=== PATIENT | female | born 1975 | race Caucasian/White ===

== ENCOUNTER 2016-11-14 16:58 | Emergency (ER) | payer MEDICAID ==
[2016-11-14 17:13] VITALS: BP 133/79
[2016-11-14] MEDS ORDERED: NAPROXEN 250 MG TABLET PO ONE (17:52)
--- NOTE | 2016-11-14 18:30 | ER Document Report ---
ED Fall - General Chief Complaint: Back Pain Stated Complaint: FALL/BACK PAIN Mode of Arrival: Ambulatory Information source: Patient Notes: 40-year-old female presents to the emergency department complaining of left upper back/rib pain. Patient reports was in her home yesterday when she lost her footing and fell on her left side onto the edge of her bed. Reports sharp pain to left upper back/lateral thorax after fall which has persisted and is worse with movement and deep breathing. Denies shortness of breath, midline back pain, chest pain, hemoptysis, extremity weakness/numbness/tingling. Patient is also requesting a refill of her albuterol inhaler as she states uses one as needed due to reported early COPD. Denies shortness of breath at this time. TRAVEL OUTSIDE OF THE [place] IN LAST 30 DAYS: No - HPI Occurred: Yesterday Where: Indoors Context: Tripped, Fell from standing Associated symptoms: None Quality of pain: Achy Severity: Moderate Pain Level: 3 - Related data Allergies/Adverse Reactions: No Known Allergies Allergy (Unverified 04/10/12 22:52) Past Medical History - General Information source: Patient - Social History Smoking Status: Current Every Day Smoker Frequency of alcohol use: None Drug Abuse: None Lives with: Family Family History: Reviewed & Not Pertinent Renal/ Medical History: Denies: Hx Peritoneal Dialysis GI Medical History: Reports: Hx Gastroesophageal Reflux Disease Traumatic Medical History: Reports: Hx Spleen Laceration/Rupture Past Surgical History: Reports: Hx Abdominal Surgery - spleenectomy, Hx Section, Hx Orthopedic Surgery - left foot, right hand, Hx Tubal Ligation - Immunizations Hx Diphtheria, Pertussis, Tetanus Vaccination: Yes Review of Systems - Review of Systems Constitutional: No symptoms reported EENT: No symptoms reported Cardiovascular: No symptoms reported Respiratory: No symptoms reported Gastrointestinal: No symptoms reported Genitourinary: No symptoms reported Female Genitourinary: No symptoms reported Musculoskeletal: See HPI Skin: No symptoms reported Hematologic/Lymphatic: No symptoms reported Neurological/Psychological: No symptoms reported -: Yes All other systems reviewed and negative Physical Exam - Vital signs Vitals: Temp Pulse Resp BP Pulse Ox 98.4 F 93 16 133/79 H 97 11/14/16 17:11 11/14/16 17:11 11/14/16 17:11 11/14/16 17:11 11/14/16 17:11 - General General appearance: Appears well, Alert In distress: None - HEENT Head: Normocephalic, Atraumatic Eyes: Normal Pupils: PERRL - Respiratory Respiratory status: No respiratory distress. No: Labored, Tachypnea Chest status: Tender - Patient has tenderness to palpation to lateral mid thorax and left upper back just inferior to scapula at mid thoracic level. Mild localized bruising to left lateral thorax at level of ribs 5-6. No swelling, crepitus, or instability., Ecchymosis, Pain on movement, Pain with deep breathing. No: Wounds, Prolonged expirations, Splinting Breath sounds: Normal - CTAB. No: Decreased air movement Chest palpation: Tender. No: Normal, Flail segment, [place] frothy sputum, Purulent sputum, Subcutaneous emphysema, Sucking chest wound, Ecchymosis, Wounds , Other - Cardiovascular Rhythm: Regular Heart sounds: Normal auscultation Murmur: No Pulses: Normal: Radial Normal capillary refill: Yes - Abdominal Inspection: Normal Distension: No distension Bowel sounds: Normal Tenderness: Nontender Organomegaly: No organomegaly - Back Back: Normal, Nontender. No: Tender, Deformity/step-off, CVA tenderness, Vertebra tenderness, Scars, Scoliosis, Wounds - Extremities General upper extremity: Normal inspection, Nontender, Normal color, Normal ROM , Normal strength, Normal temperature. No: Edema General lower extremity: Normal inspection, Nontender, Normal color, Normal ROM , Normal strength, Normal temperature, Normal weight bearing. No: Edema - Neurological Neuro grossly intact: Yes Cognition: Normal Orientation: AAOx4 [place] Coma Scale Eye Opening: Spontaneous [place] Coma Scale Verbal: Oriented [place] Coma Scale Motor: Obeys Commands [place] Coma Scale Total: 15 Speech: Normal Motor strength normal: LUE, RUE, LLE, RLE Sensory: Normal - Skin Skin Temperature: Warm Skin Moisture: Dry Skin Color: Normal Course - Re-evaluation Re-evalutation: 11/14/16 19:07 Patient hemodynamically stable, in no distress. Rib/chest x-ray unremarkable. Will treat for likely rib contusion and have patient presentation and physical exam findings are not suggestive of other intrathoracic emergent etiology at this time. Patient appears stable for discharge and agrees with home care, follow-up, and ED return precautions. - Vital Signs Vital signs: Temp Pulse Resp BP Pulse Ox 98.4 F 93 16 133/79 H 97 11/14/16 17:11 11/14/16 17:11 11/14/16 17:11 11/14/16 17:11 11/14/16 17:11 - Diagnostic Test Radiology reviewed: Image reviewed, Reports reviewed Discharge - Discharge Clinical Impression: Contusion of rib on left side Qualifiers: Encounter type: initial encounter Qualified Code(s): S20.212A - Contusion of left front wall of thorax, initial encounter Condition: Stable Disposition: HOME, SELF-CARE Instructions: Rib Contusion ([facility]), Ice Packs ([facility]), Warm Packs ([facility]), Use of [id number]-[id number] Ibuprofen ([facility]), Ultram ([facility]) Additional Instructions: Follow-up with your primary care provider on Wednesday. Return to the emergency department for any worsening symptoms or concerns. Prescriptions: Tramadol HCl [Ultram] 50 mg PO Q8HP PRN #10 tablet PRN Reason: Albuterol Sulfate [Proair HFA Inhalation Aerosol 8.5 gm MDI] 2 puff IH Q4H PRN # 1 mdi PRN Reason: Lidocaine/Menthol [Lidopatch] 1 patch TP DAILY PRN #5 adh..patch PRN Reason: Forms: Elevated Blood Pressure [facility]: [facility] [NO LOCAL MD] - Follow up in 3-5 days
== END 2016-11-14 19:26 | disposition home or self-care (01) ==
LOC: ER 16:58
DX: S20.212A Contusion of left front wall of thorax, initial encounter (principal); M54.9 Dorsalgia, unspecified; M54.6 Pain in thoracic spine; R07.81 Pleurodynia; W19.XXXA Unspecified fall, initial encounter; F17.200 Nicotine dependence, unspecified, uncomplicated
CPT/HCPCS: 99283

== ENCOUNTER 2017-02-08 21:16 | Emergency (ER) | payer SELFPAY ==
[2017-02-08] MEDS ORDERED: ACETAMINOPHEN 325 MG TABLET PO ONE (21:30)
[2017-02-08] MEDS ORDERED: MORPHINE SULFATE 10 MG/ML INJ IV ONE (21:48)
--- NOTE | 2017-02-08 21:59 | RADIOLOGY REPORT (SQ) ---
EXAM DESCRIPTION: SHOULDER LEFT 2 OR MORE VIEWS COMPLETED DATE/TIME: 02/08/2017 9:51 pm REASON FOR STUDY: injury COMPARISON: NUMBER OF VIEWS: Three views. TECHNIQUE: Internal rotation, external rotation, and Y view images acquired of the left shoulder. LIMITATIONS: None. FINDINGS: MINERALIZATION: Normal. BONES: No acute fracture or dislocation. No worrisome bone lesions. JOINTS: Anterior inferior shoulder dislocation. VISUALIZED LUNGS AND RIBS: No pneumothorax. No rib fracture. SOFT TISSUES: No radiopaque foreign body. OTHER: No other significant finding. IMPRESSION: Anterior inferior left shoulder dislocation. No acute fracture identified. TECHNICAL DOCUMENTATION: JOB ID: [id number] [employer]- All Rights Reserved
[2017-02-08] MEDS ORDERED: PROPOFOL INJ 200 MG/20 ML VIAL IV ONE ×2 (22:08→23:01)
--- NOTE | 2017-02-08 23:06 | ER Document Report ---
ED Extremity Problem, Upper - General Chief Complaint: Shoulder Injury Stated Complaint: ARM/SHOULDER INJURY Time Seen by Provider: 02/08/17 21:48 Notes: Patient is a 41-year-old female, past medical history of multiple bilateral shoulder dislocations, presents with 3 hours of left shoulder pain and feeling like it dislocated today after she reached for an object. She denies numbness, tingling or open wounds. TRAVEL OUTSIDE OF THE [place] IN LAST 30 DAYS: No - Related Data Allergies/Adverse Reactions: No Known Allergies Allergy (Unverified 04/10/12 22:52) Past Medical History - General Information source: Patient - Social History Smoking Status: Current Every Day Smoker Family History: Reviewed & Not Pertinent Patient has suicidal ideation: No Patient has homicidal ideation: No Renal/ Medical History: Denies: Hx Peritoneal Dialysis GI Medical History: Reports: Hx Gastroesophageal Reflux Disease Traumatic Medical History: Reports: Hx Spleen Laceration/Rupture Past Surgical History: Reports: Hx Abdominal Surgery - spleenectomy, Hx Section, Hx Orthopedic Surgery - left foot, right hand, Hx Tubal Ligation - Immunizations Hx Diphtheria, Pertussis, Tetanus Vaccination: Yes Review of Systems - Review of Systems Notes: REVIEW OF SYSTEMS: CONSTITUTIONAL: -fevers, -chills EENT: -eye pain, -difficulty swallowing, -nasal congestion CARDIOVASCULAR:-chest pain, -syncope. RESPIRATORY: -cough, -SOB GASTROINTESTINAL: -abdominal pain, - nausea, -vomiting, -diarrhea GENITOURINARY: -dysuria, -hematuria MUSCULOSKELETAL: +left shoulder pain, -back pain, -neck pain SKIN: -rash or skin lesions. HEMATOLOGIC: -easy bruising or bleeding. LYMPHATIC: -swollen, enlarged glands. NEUROLOGICAL: -altered mental status or loss of consciousness, -headache, - neurologic symptoms PSYCHIATRIC: -anxiety, -depression. ALL OTHER SYSTEMS REVIEWED AND NEGATIVE. Physical Exam - Vital signs Vitals: Temp Pulse Resp BP Pulse Ox 98.2 F 85 18 134/90 H 97 02/08/17 21:26 02/08/17 21:26 02/08/17 21:26 02/08/17 21:26 02/08/17 21:26 - Notes Notes: PHYSICAL EXAMINATION: GENERAL: Moderate distress HEAD: Atraumatic, normocephalic. EYES: Pupils equal round and reactive to light, extraocular movements intact, sclera anicteric, conjunctiva are normal. ENT: nares patent, oropharynx clear without exudates. Moist mucous membranes. NECK: Normal range of motion, supple without lymphadenopathy LUNGS: Breath sounds clear to auscultation bilaterally and equal. No wheezes rales or rhonchi. HEART: Regular rate and rhythm without murmurs ABDOMEN: Soft, nontender, normoactive bowel sounds. No guarding, no rebound. No masses appreciated. EXTREMITIES: Left shoulder deformity. NV intact distally. NEUROLOGICAL: Cranial nerves grossly intact. Normal speech, normal gait. Normal sensory and motor exams. PSYCH: Normal mood, normal affect. SKIN: Warm, Dry, normal turgor, no rashes or lesions noted. Course - Vital Signs Vital signs: Temp Pulse Resp BP Pulse Ox 98.2 F 85 18 134/90 H 97 02/08/17 21:26 02/08/17 21:26 02/08/17 21:26 02/08/17 21:26 02/08/17 21:26 - Diagnostic Test Radiology reviewed: Image reviewed, Reports reviewed Radiology results interpreted by me: Left shoulder x-ray: inferior and anterior shoulder dislocation Procedures - Conscious Sedation Conscious sedation Time started: 22:50 Time completed: 23:05 Consent obtained: Yes Indication: Left shoulder dislocation Last meal: 0800 Normal healthy pt.: P1. - ASA Classification Airway Evaluation: Normal anatomy Mallampati Classification: Class 1 Used during procedure: Suction available, IV access obtained, Pulse ox on pt., playground monitor on pt. Medications administered: Diprivan Reversal agents: None I personally performed/intraservice time: Sedation, Procedure, 30 min or less Complications: No - Joint Reduction/Fracture Care Left Shoulder Time completed: 23:04 Consent obtained: Yes Conscious sedation: Yes Pre-procedure NV exam: Yes Manipulation comment: Traction Countertraction technique Post-procedure NV exam: Yes Post-reduction x-ray: Joint reduced, No fracture seen Reduction attempts: 1 Complications: No Discharge - Discharge Clinical Impression: Dislocation of left shoulder joint Qualifiers: Encounter type: initial encounter Qualified Code(s): S43.005A - Unspecified dislocation of left shoulder joint, initial encounter Condition: Stable Disposition: HOME, SELF-CARE Additional Instructions: Shoulder Dislocation You've had a shoulder dislocation. Even after the shoulder is put back in place, careful care is needed to prevent further problems. As the shoulder dislocated, injury to the joint itself occurred. This must be allowed to heal. The usual treatment is a shoulder immobilizing sling. If this is your first dislocation, it must be left in place until the doctor allows you to remove it. This is important. Ice pack the shoulder frequently. One of the most important aspects of care for a shoulder dislocation is mobility exercises and strengthening exercises. You'll start these when it's safe to start moving the shoulder joint. Be sure to keep your follow-up appointments. If you develop numbness in the arm or hand, weakness of the hand muscles, arm swelling, or arm discoloration, call the doctor or return immediately. Referrals: JOSHUA YE, [facility] [Primary Care Provider] - Follow up as needed ISMAEL BOYER DO [ACTIVE STAFF] - Follow up as needed
--- NOTE | 2017-02-08 23:23 | RADIOLOGY REPORT (SQ) ---
EXAM DESCRIPTION: SHOULDER LEFT 1 VIEW COMPLETED DATE/TIME: 02/08/2017 11:09 pm REASON FOR STUDY: post-reduction COMPARISON: 02/08/2017 NUMBER OF VIEWS: One view. TECHNIQUE: AP images acquired of the left shoulder. LIMITATIONS: None. FINDINGS: There please to be interval reduction of the anterior inferior dislocation of the left thom ulder. No fracture evident. IMPRESSION: Interval reduction of the anterior inferior dislocation of the left shoulder. No fractu re evident. TECHNICAL DOCUMENTATION: JOB ID: [id number] [employer].- All Rights Reserved
[2017-02-08 23:28] VITALS: BP 117/82
== END 2017-02-08 23:27 | disposition home or self-care (01) ==
LOC: ER 21:16
PROC: 0RSKXZZ Reposition Left Shoulder Joint, External Approach (ICD-10-PCS; principal; 2017-02-08)
DX: S43.005A Unspecified dislocation of left shoulder joint, initial encounter (principal); X58.XXXA Exposure to other specified factors, initial encounter; F17.200 Nicotine dependence, unspecified, uncomplicated
CPT/HCPCS: 99283; 99152; 96374; 73020; 73030; 23650; L3650 ×2; J2270

== ENCOUNTER 2017-05-13 10:58 | Inpatient (IN) | payer SELFPAY ==
--- NOTE | 2017-05-13 11:57 | ER Document Report ---
ED Respiratory Problem <VIPIN ALMANZA - Last Filed: 05/13/17 13:51> - General Mode of Arrival: Ambulatory Information source: Patient TRAVEL OUTSIDE OF THE [place] IN LAST 30 DAYS: No <МАРИНА QUINTEROS - Last Filed: 05/13/17 14:07> - General Chief Complaint: lt shoulder and rib pain after fall Stated Complaint: FALL/RIB PAIN Time Seen by Provider: 05/13/17 11:36 Notes: Patient is a 41-year-old female who presents to the emergency department today with complaints of left lateral chest wall pain. Patient states she fell off a porch yesterday landing on the post on her left anterior ribs. Patient has a history of splenectomy. (МАРИНА QUINTEROS) - Related Data Allergies/Adverse Reactions: No Known Allergies Allergy (Unverified 04/10/12 22:52) Past Medical History - General Information source: Patient - Social History Smoking Status: Current Every Day Smoker Cigarette use (# per day): Yes Chew tobacco use (# tins/day): No Frequency of alcohol use: None Drug Abuse: None Lives with: Family Family History: Reviewed & Not Pertinent Patient has suicidal ideation: No Patient has homicidal ideation: No GI Medical History: Reports: Hx Gastroesophageal Reflux Disease Traumatic Medical History: Reports: Hx Spleen Laceration/Rupture Past Surgical History: Reports: Hx Abdominal Surgery - spleenectomy, Hx Section, Hx Orthopedic Surgery - left foot, right hand, Hx Tubal Ligation - Immunizations Hx Diphtheria, Pertussis, Tetanus Vaccination: Yes <МАРИНА QUINTEROS - Last Filed: 05/13/17 14:07> Review of Systems - Review of Systems Constitutional: No symptoms reported EENT: No symptoms reported Cardiovascular: No symptoms reported Respiratory: See HPI, Other - chest wall pain Gastrointestinal: No symptoms reported Genitourinary: No symptoms reported Female Genitourinary: No symptoms reported Musculoskeletal: No symptoms reported Skin: No symptoms reported Hematologic/Lymphatic: No symptoms reported Neurological/Psychological: No symptoms reported -: Yes All other systems reviewed and negative <МАРИНА QUINTEROS - Last Filed: 05/13/17 14:07> Physical Exam <VIPIN ALMANZA - Last Filed: 05/13/17 13:51> <МАРИНА QUINTEROS - Last Filed: 05/13/17 14:07> - Vital signs Vitals: Pulse Resp BP Pulse Ox 97 20 104/63 100 05/13/17 11:09 05/13/17 11:09 05/13/17 11:09 05/13/17 11:09 - Notes Notes: Physical Exam: General: Alert, appears uncomfortable HEENT: Normocephalic. Atraumatic. PERRL. Extraocular movements intact. Oropharynx clear. Neck: Supple. Non-tender. Respiratory: No respiratory distress. Rhonchi bilaterally consistent with smoking history. Left anterior chest wall tenderness with palpation. Cardiovascular: Regular rate and rhythm. Abdominal: Left upper quadrant tenderness with palpation. No distension. Normal Bowel Sounds. Back: Mild left scapular pain. No deformity or step off. Extremities: Moves all four extremities. Upper extremities: Normal inspection. Normal ROM. Lower extremities: Normal inspection. No edema. Normal ROM. Neurological: Normal cognition. AAOx4. Normal speech. Psychological: Normal affect. Normal Mood. Skin: Warm. Dry. Normal color. (МАРИНА QUINTEROS) Course - Laboratory Result Diagrams: 05/13/17 12:50 05/13/17 12:50 - Consults Dr. Chance Time consulted: 13:45 Consulted provider: will come to ER <VIPIN ALMANZA - Last Filed: 05/13/17 13:51> - Laboratory Result Diagrams: 05/13/17 12:50 05/13/17 12:50 <МАРИНА QUINTEROS - Last Filed: 05/13/17 14:07> - Vital Signs Vital signs: Temp Pulse Resp BP Pulse Ox 98.0 F 98 16 104/63 97 05/13/17 11:11 05/13/17 12:06 05/13/17 12:06 05/13/17 11:11 05/13/17 12:06 - Laboratory Laboratory results interpreted by me: 05/13/17 12:50 WBC 15.4 H Seg Neutrophils % 81.2 H Absolute Neutrophils 12.5 H Discharge - Discharge Admitting Provider: Surgicalist Unit Admitted: Surgical Floor <VIPIN ALMANZA - Last Filed: 05/13/17 13:51> <МАРИНА QUINTEROS - Last Filed: 05/13/17 14:07> - Discharge Clinical Impression: Pneumothorax, left Condition: Stable Disposition: ADMITTED INPATIENT Scribe Attestation: 05/13/17 13:51 I personally performed the services described in the documentation, reviewed and edited the documentation which was dictated to the scribe in my presence, and it accurately records my words and actions. (VIPIN ALMANZA) Scribe Documentation - Scribe Written by Scribe:: Donny Reyes, 05/13/2017 1332 acting as scribe for :: Jose Ramon <МАРИНА QUINTEROS - Last Filed: 05/13/17 14:07>
[2017-05-13] MEDS ORDERED: FENTANYL CITRATE INJ/PF 100 MCG/2 ML AMPUL IV ONE ×3 (11:58→15:52)
[2017-05-13] MEDS ORDERED: ONDANSETRON HCL INJ/PF 4 MG/2 ML SDV IV ONE (11:58)
[2017-05-13] MEDS ORDERED: NORMAL SALINE 1000 ML 1,000 ML IV ONE (11:59)
[2017-05-13 13:32] LABS: ABSOLUTE LYMPHOCYTES (AUTO) 2.1 10^3/uL (0.5-4.7); ABSOLUTE MONOCYTES (AUTO) 0.8 10^3/uL (0.1-1.4); ABSOLUTE NEUT (AUTO) 12.5 10^3/uL (1.7-8.2); BASOPHILS % (AUTO) 0.2 % (0-2); HEMATOCRIT 40.8 % (36.0-47.0); HGB HCT DIFFERENCE 1.2; LYMPHOCYTES % (AUTO) 13.3 % (13-45); MEAN CORPUSCULAR HEMOGLOBIN 30.2 pg (27.0-33.4); MEAN CORPUSCULAR HGB CONC 34.2 g/dL (32.0-36.0); MEAN CORPUSCULAR VOLUME 88 fl (80-97); MONOCYTES % (AUTO) 5.3 % (3-13); RED BLOOD COUNT 4.62 10^6/uL (3.72-5.28); RED CELL DISTRIBUTION WIDTH 13.4 % (11.5-14.0); SEGMENTED NEUTROPHILS % (AUTO) 81.2 % (42-78); WHITE BLOOD COUNT 15.4 10^3/uL (4.0-10.5)
[2017-05-13 13:39] LABS: ALANINE AMINOTRANSFERASE 26 U/L (9-52); ALBUMIN 4.2 g/dL (3.5-5.0); ALKALINE PHOSPHATASE 62 U/L (38-126); ANION GAP 12 (5-19); ASPARTATE AMINO TRANSFERASE 16 U/L (14-36); BILIRUBIN,DIRECT 0.3 mg/dL (0.0-0.4); BILIRUBIN,TOTAL 0.8 mg/dL (0.2-1.3); BLOOD UREA NITROGEN 10 mg/dL (7-20); CALCIUM 9.2 mg/dL (8.4-10.2); CARBON DIOXIDE 24 mmol/L (22-30); CHLORIDE 106 mmol/L (98-107); CREATININE RESULT 0.74 mg/dL (0.52-1.25); GLUCOSE 104 mg/dL (75-110); POTASSIUM 3.9 mmol/L (3.6-5.0); SODIUM 141.6 mmol/L (137-145); TOTAL PROTEIN 6.8 g/dL (6.3-8.2)
[2017-05-13] MEDS ORDERED: LIDOCAINE 1% INJ-PF (10 MG/ML) 30 ML SDV INJ ONE (13:47)
--- NOTE | 2017-05-13 15:06 | RADIOLOGY REPORT (SQ) ---
EXAM DESCRIPTION: CHEST SINGLE VIEW COMPLETED DATE/TIME: 05/13/2017 2:54 pm REASON FOR STUDY: fell off porch onto post, L ant/inf ribs COMPARISON: 10/09/2015 EXAM PARAMETERS: NUMBER OF VIEWS: One view. TECHNIQUE: Single frontal radiographic view of the chest acquired. RADIATION DOSE: NA LIMITATIONS: None. FINDINGS: LUNGS AND PLEURA: There is a 50% pneumothorax on the left. There is no significant pleura l fluid. MEDIASTINUM AND HILAR STRUCTURES: No masses. Contour normal. HEART AND VASCULAR STRUCTURES: Heart normal in size. Normal vasculature. BONES: There is a fracture of the 4th rib posteriorly. There may be healing at this fracture site. HARDWARE: None in the chest. OTHER: No other significant finding. IMPRESSION: 50% left pneumothorax. COMMENT: Findings were discussed with the ordering physician at 1500 hours on this date. TECHNICAL DOCUMENTATION: JOB ID: [id number]
--- NOTE | 2017-05-13 16:39 | RADIOLOGY REPORT (SQ) ---
EXAM DESCRIPTION: CHEST SINGLE VIEW COMPLETED DATE/TIME: 05/13/2017 4:18 pm REASON FOR STUDY: Chest Tube Placement COMPARISON: AP chest 05/13/2017, 10/09/2015 EXAM PARAMETERS: NUMBER OF VIEWS: One view. TECHNIQUE: Single frontal radiographic view of the chest acquired. RADIATION DOSE: NA LIMITATIONS: None. FINDINGS: LUNGS AND PLEURA: Since the prior film [id number], a large 4 left chest tube has been plac ed, with the tip at the apex left hemithorax. No residual left pneumothorax. There is mild diffuse airspace disease throughout the left lung which could be 3 expansion lung paren chyma pulmonary edema. Right lung well inflated, minimal chronic scarring or atelectasis lateral costophrenic sulcus. No ri ght pleural effusion or pneumothorax. MEDIASTINUM AND HILAR STRUCTURES: No masses. Contour normal. HEART AND VASCULAR STRUCTURES: Heart normal in size. Normal vasculature. BONES: No acute findings. HARDWARE: Left chest tube OTHER: Gaseous distention of the stomach IMPRESSION: Interval placement of a left chest tube in good positioning. Re-expansion of the left l doris with left lung diffuse ground-glass opacity from re-expansion pulmonary edema. TECHNICAL DOCUMENTATION: JOB ID: [id number]
--- NOTE | 2017-05-13 17:13 | PDOC H&P ---
History of Present Illness Admission Date/PCP: 05/13/17 14:41 Patient complains of: Left chest pains History of Present Illness: EDYTA BOX is a 41 year old female who slipped on her porch last night and hit her left chest on the post. She did have some complaints of pains in the left chest but worse when she woke up this morning around 9:30 AM. She was then brought to the emergency room by EMS where chest x-ray showed about a 50% left pneumothorax. A left chest tube was then inserted in the emergency room by Dr. Chance. Chest x-ray showed reexpansion of the lung with some groundglass appearance. There is about a 50 cc of blood drainage from the chest tube with small amount of air leak during the chest x-ray post chest tube placement and. Patient little uncooperative and because of pains and unable to sit up and a chest x-ray was done prior only on a semi-erect position. Past Medical History GI Medical History: Reports: Gastroesophageal Reflux Disease Past Surgical History Past Surgical History: Reports: Section, Orthopedic Surgery - left foot , right hand, Tubal Ligation Social History Lives with: Family Smoking Status: Current Every Day Smoker Frequency of Alcohol Use: Rare Hx Recreational Drug Use: No Hx Prescription Drug Abuse: No - Advance Directive Resuscitation Status: Full Code Family History Family History: Reviewed & Not Pertinent Parental Family History Reviewed: Yes Children Family History Reviewed: No Sibling(s) Family History Reviewed.: No Medication/Allergy Home Medications: No Home Medications 05/13/17 Allergies/Adverse Reactions: No Known Allergies Allergy (Unverified 04/10/12 22:52) Review of Systems Constitutional: PRESENT: other - Denies chills or fever Eyes: PRESENT: other Ears: PRESENT: other - No visible disturbance denies hearing change Cardiovascular: PRESENT: chest pain, other - Due to trauma last night Respiratory: PRESENT: as per HPI Gastrointestinal: PRESENT: other - No nausea or vomiting diarrhea or constipation Genitourinary: PRESENT: other - No dysuria Musculoskeletal: PRESENT: other - Left chest pains very tender left anterior rib cage Neurological: PRESENT: other - No dizziness nor seizure disorder Psychiatric: PRESENT: other - Patient is anxious and somewhat agitated Endocrine: PRESENT: other - Polyuria nor polydipsia Hematologic/Lymphatic: PRESENT: other - No easy bruisability or lymphadenopathy Physical Exam Vital Signs: Temp Pulse Resp BP Pulse Ox 98.0 F 98 19 114/84 98 05/13/17 11:11 05/13/17 12:06 05/13/17 16:02 05/13/17 16:02 05/13/17 16:02 General appearance: PRESENT: well-developed, well-nourished, other - In moderate distress because of severe left chest pains Head exam: PRESENT: atraumatic, normocephalic Eye exam: PRESENT: conjunctiva pink Ear exam: PRESENT: normal external ear exam Mouth exam: PRESENT: moist, tongue midline Throat exam: PRESENT: other - Postpharyngeal erythema Neck exam: PRESENT: other - Trachea midline Respiratory exam: PRESENT: other - Decreased breath sounds on the left chest and has tenderness on the left anterior and lateral chest wall Cardiovascular exam: PRESENT: RRR - Regular rate and rhythm Pulses: PRESENT: normal carotid pulses Vascular exam: PRESENT: normal capillary refill GI/Abdominal exam: PRESENT: soft, other - Nontender Rectal exam: PRESENT: deferred Extremities exam: PRESENT: other - Complains of pains along both shoulders and able to move them easily. She had she claims she had a dislocation of both shoulders in the past and needed to be reduced in the emergency room Musculoskeletal exam: PRESENT: other - Decreased range of motions of both arms her upper arms because of shoulder discomfort primarily on the left side Neurological exam: PRESENT: alert, oriented to person, oriented to place, oriented to time, oriented to situation Psychiatric exam: PRESENT: agitated, anxious Skin exam: PRESENT: dry, normal color, warm Results Impressions: Chest X-Ray 05/13/17 11:59 IMPRESSION: 50% left pneumothorax. Assessment & Plan - Time Time Spent: 30 to 50 Minutes - Inpatient Certification Medical Necessity: Need For Continuous Telemetry Monitoring, Need for Pain Control, Risk of Complication if Not Cared For in Hospital - Plan Summary Plan Summary: A left chest tube placed at the left fifth intercostal space was done in the emergency room under local anesthesia and sedation. Chest x-ray showed good position of the chest tube with possibly hemothorax. Chest tube has drained about 50 cc of blood. X-ray was then semi-erect because patient unable to sit up erect because of the pains Chest tube to suction. Serial chest x-ray to monitor the pneumothorax Order incentive spirometry and nasal oxygen Pain management with parenteral pain medications
[2017-05-13] MEDS ORDERED: HYDROMORPHONE HCL INJ/PF 2 MG/ML AMPULE IV PRN ×2 (17:29→20:12)
--- NOTE | 2017-05-13 17:43 | OPERATIVE REPORT E ---
Operative Report NAME: EDYTA BOX : 1975 AGE: 41Y DATE OF SURGERY: 05/13/2017 ROOM: 415 PREOPERATIVE DIAGNOSIS: Pneumothorax from the left side, traumatic. POSTOPERATIVE DIAGNOSIS: Pneumothorax from the left side, traumatic. OPERATION: Insertion of left chest tube at 5th intercostal space. SURGEON: KIRILL JOVEL M.D. ANESTHESIA: Local with sedation. INDICATION: This is a 41-year-old female who slipped on her porch and fell on the floor, hitting a pole on her left chest. She complained of pain on the left, but felt she was able to sleep well last night. She woke up this morning around 9:30 a.m. complaining of severe pains and called EMS to bring her to the emergency room. Chest x-ray in the ER revealed at least a 30% to 40% pneumothorax on the left chest. The patient was given 1 mg of IV Dilaudid on top of the fentanyl she just had. DESCRIPTION OF PROCEDURE: The left chest was then prepped and draped in the usual sterile fashion. Local anesthesia was infiltrated at the area of the fifth intercostal space. A 1/2 inch incision was made just above the fifth rib. At this point, the patient was still complaining of discomfort and the patient then given the rest of 1 mg of Dilaudid for a total of 2 mg. Also the operative site was anesthetized further with 1% lidocaine down to the pleura. Blunt dissection of the intercostal space was done with hemostat and the pleural cavity entered with a little gush of air. Finger was placed to prevent entry of air into the chest cavity, and a 28-[place] chest tube was then inserted up to about 16 cm. The chest tube was then anchored to the skin with O silk. The chest tube was then clamped and connected to a Pleur-Evac and there was obvious air leak noted in the Pleur-Evac. Vaseline gauze was then sterile 4 x 4 placed on top of it and adhesive tape placed over it. The connector was then reinforced with adhesive tape. A chest x-ray will be obtained. The patient tolerated the procedure well. DICTATING PHYSICIAN: KIRILL JOVEL M.D. [id number] PHY#: [id number] ID: [id number] JOB#: [id number] ACCT: [id number] cc:KIRILL JOVEL M.D. >
--- NOTE | 2017-05-13 17:50 | PDOC H&P ---
History of Present Illness Admission Date/PCP: 05/13/17 14:41 Patient complains of: Left chest pains and difficulty breathing History of Present Illness: This is a 41-year-old female who fell of his reports last night and landed on the post injuring her left chest. She did complain some pains last night but worse when she woke up this morning at 9:30 AM. She called 911 and subsequently brought to the ER where a chest x-ray was done which showed a needs a 50% left pneumothorax. Dr. Wing placed in left chest tube the fifth intercostal space midclavicular line under local anesthesia and sedation. Chest x-ray post tube placement revealed normal practically completely expanded with some haziness may be due to hemothorax. The chest tube is drained 50 cc of blood and still has somewhat a little air leak. Patient unable to cough because of the pains and unable to move because of the pains. We will give her parenteral pain medications so she can better breathe well to prevent pneumonia Past Medical History GI Medical History: Reports: Gastroesophageal Reflux Disease Past Surgical History Past Surgical History: Reports: Section, Orthopedic Surgery - left foot , right hand, Tubal Ligation Social History Lives with: Family Smoking Status: Current Every Day Smoker Frequency of Alcohol Use: Rare Hx Recreational Drug Use: No Hx Prescription Drug Abuse: No - Advance Directive Resuscitation Status: Full Code Family History Family History: Reviewed & Not Pertinent Parental Family History Reviewed: Yes Children Family History Reviewed: No Sibling(s) Family History Reviewed.: No Medication/Allergy Home Medications: No Home Medications 05/13/17 Allergies/Adverse Reactions: No Known Allergies Allergy (Unverified 04/10/12 22:52) Review of Systems Constitutional: ABSENT: chills, fever(s), headache(s), weight gain, weight loss Eyes: ABSENT: visual disturbances Ears: ABSENT: hearing changes Cardiovascular: ABSENT: chest pain, dyspnea on exertion, edema, orthropnea, palpitations Respiratory: ABSENT: cough, hemoptysis Gastrointestinal: ABSENT: abdominal pain, constipation, diarrhea, hematemesis, hematochezia, nausea, vomiting Genitourinary: ABSENT: dysuria, hematuria Musculoskeletal: ABSENT: joint swelling Integumentary: ABSENT: rash, wounds Neurological: ABSENT: abnormal gait, abnormal speech, confusion, dizziness, focal weakness, syncope Psychiatric: ABSENT: anxiety, depression, homidical ideation, suicidal ideation Endocrine: ABSENT: cold intolerance, heat intolerance, polydipsia, polyuria Hematologic/Lymphatic: ABSENT: easy bleeding, easy bruising Physical Exam Vital Signs: Temp Pulse Resp BP Pulse Ox 98.0 F 97 18 109/69 97 05/13/17 17:00 05/13/17 17:00 05/13/17 17:00 05/13/17 17:00 05/13/17 17:00 General appearance: PRESENT: no acute distress, well-developed, well-nourished Exam: As tenderness along the left anterolateral chest wall. Incidentally patient has a fracture of the left fourth rib radiologist not clear about saying whether it is old or new. Head exam: PRESENT: atraumatic, normocephalic Eye exam: PRESENT: conjunctiva pink, EOMI, PERRLA. ABSENT: scleral icterus Ear exam: PRESENT: normal external ear exam Mouth exam: PRESENT: moist, tongue midline Neck exam: ABSENT: carotid bruit, JVD, lymphadenopathy, thyromegaly Respiratory exam: PRESENT: clear to auscultation brayan. ABSENT: rales, rhonchi, wheezes Cardiovascular exam: PRESENT: RRR. ABSENT: diastolic murmur, rubs, systolic murmur Pulses: PRESENT: normal dorsalis pedis pul Vascular exam: PRESENT: normal capillary refill GI/Abdominal exam: PRESENT: normal bowel sounds, soft. ABSENT: distended, guarding, mass, organolmegaly, rebound, tenderness Rectal exam: PRESENT: deferred Extremities exam: PRESENT: full ROM. ABSENT: calf tenderness, clubbing, pedal edema Neurological exam: PRESENT: alert, awake, oriented to person, oriented to place , oriented to time, oriented to situation, CN II-XII grossly intact. ABSENT: motor sensory deficit Psychiatric exam: PRESENT: appropriate affect, normal mood. ABSENT: homicidal ideation, suicidal ideation Skin exam: PRESENT: dry, intact, warm. ABSENT: cyanosis, rash Results Impressions: Chest X-Ray 05/13/17 11:59 IMPRESSION: 50% left pneumothorax. Assessment & Plan - Time Time Spent: 30 to 50 Minutes - Inpatient Certification Medical Necessity: Need Close Monitoring Due to Risk of Patient Decompensation, Need For Continuous Telemetry Monitoring, Need for Pain Control, Risk of Complication if Not Cared For in Hospital, Risk of Diagnosis Which Will Require Inpatient Eval/Care/Monitoring
[2017-05-13] MEDS: HYDROMORPHONE HCL INJ/PF 2 MG/ML AMPULE IV PRN ×2 (20:42→23:53)
[2017-05-13] MEDS ORDERED: NICOTINE 21 MG/24 HR PATCH.TD24 TD ONE (21:30)
[2017-05-14] MEDS: OXYCODONE-ACETAMINOPHEN 5-325 MG TABLET PO PRN ×3 (01:13→21:38)
[2017-05-14] MEDS: HYDROMORPHONE HCL INJ/PF 2 MG/ML AMPULE IV PRN ×2 (02:58→08:22)
[2017-05-14] MEDS: NICOTINE 21 MG/24 HR PATCH.TD24 TD SCH (08:21)
--- NOTE | 2017-05-14 10:51 | RADIOLOGY REPORT (SQ) ---
EXAM DESCRIPTION: CHEST SINGLE VIEW COMPLETED DATE/TIME: 05/14/2017 10:38 am REASON FOR STUDY: CHECK FOR PLACEMENT COMPARISON: 05/13/2017 EXAM PARAMETERS: NUMBER OF VIEWS: One view. TECHNIQUE: Single frontal radiographic view of the chest acquired. RADIATION DOSE: NA LIMITATIONS: None. FINDINGS: LUNGS AND PLEURA: The left lung is re-expanded. There is faintly defined increased opacit y in the left lung, possibly secondary to re-expansion. MEDIASTINUM AND HILAR STRUCTURES: No masses. Contour normal. HEART AND VASCULAR STRUCTURES: Heart normal in size. Normal vasculature. BONES: No acute findings. HARDWARE: Thoracotomy tube remains in place on the left. OTHER: No other significant finding. IMPRESSION: There may be mild edema in the left lung secondary to re-expansion. The thoracotomy tub e remains in position. TECHNICAL DOCUMENTATION: JOB ID: [id number]
[2017-05-14] MEDS ORDERED: ONDANSETRON HCL 8 MG TABLET PO PRN (12:36)
[2017-05-14] MEDS ORDERED: ONDANSETRON HCL INJ/PF 4 MG/2 ML SDV ONE (12:36)
[2017-05-14] MEDS ORDERED: HYDROMORPHONE HCL INJ/PF 2 MG/ML AMPULE IV PRN (16:27)
--- NOTE | 2017-05-14 16:27 | PDOC PROGRESS REPORT ---
Subjective Progress Note for:: 05/14/17 Subjective:: Severe pains along the left chest Physical Exam Vital Signs: Temp Pulse Resp BP Pulse Ox 98.5 F 91 16 101/54 L 96 05/14/17 16:07 05/14/17 16:07 05/14/17 16:07 05/14/17 16:07 05/14/17 16:07 Intake & Output 05/13/17 05/14/17 05/15/17 06:59 06:59 06:59 Intake Total 630 Output Total 880 Balance -250 Exam: Positive tenderness along the left anterior lateral chest. She does have a fracture of the left fourth rib. Chest tube drainage since about 250 cc of primarily serous sanguinous at this time. No definite air leak noted Results Impressions: Chest X-Ray 05/14/17 08:00 IMPRESSION: There may be mild edema in the left lung secondary to re- expansion. The thoracotomy tube remains in position. Assessment & Plan - Time Time Spent with patient: 15-24 minutes - Inpatient Certification Medical Necessity: Need Close Monitoring Due to Risk of Patient Decompensation, Need For Continuous Telemetry Monitoring, Need for Pain Control, Risk of Complication if Not Cared For in Hospital, Risk of Diagnosis Which Will Require Inpatient Eval/Care/Monitoring - Plan Summary Plan Summary: #1 continue with chest tube 2. We will add Toradol since her blood pressure in the low side and higher dose of narcotic may may give her more hypotension. 3. Schwartz catheter was inserted since she is not able to void on her own and she did have about 800 cc of urine prior to placement of Schwartz catheter. 4. We will ask physical therapy to get her out of bed. She claims she had history of dislocation of both shoulders and each time there were and they were put back in the emergency room. Because of this she is afraid of her shoulders being dislocated and also has a lot of pains along the left chest area where she has a fracture of the fourth rib
[2017-05-14] MEDS: KETOROLAC TROMETHAMINE INJ/PF 30 MG/1 ML SDV IV SCH (18:04)
[2017-05-14] MEDS: ONDANSETRON HCL INJ/PF 4 MG/2 ML SDV IV PRN (18:05)
[2017-05-14] MEDS: NORMAL SALINE 1000 ML 1,000 ML IV PRN (18:06)
[2017-05-15] MEDS: KETOROLAC TROMETHAMINE INJ/PF 30 MG/1 ML SDV IV SCH ×3 (02:06→17:25)
[2017-05-15] MEDS: OXYCODONE-ACETAMINOPHEN 5-325 MG TABLET PO PRN ×2 (04:22→15:32)
[2017-05-15] MEDS: NICOTINE 21 MG/24 HR PATCH.TD24 TD SCH (10:40)
[2017-05-15] MEDS: DOCUSATE SODIUM 100 MG CAPSULE PO SCH ×2 (10:41→17:35)
[2017-05-15] MEDS: ONDANSETRON HCL INJ/PF 4 MG/2 ML SDV IV PRN ×2 (10:47→23:46)
[2017-05-15] MEDS: NORMAL SALINE 1000 ML 1,000 ML IV PRN (18:25)
[2017-05-15] MEDS: HYDROMORPHONE HCL INJ/PF 2 MG/ML AMPULE IV PRN ×2 (18:50→23:46)
--- NOTE | 2017-05-15 20:21 | RADIOLOGY REPORT (SQ) ---
EXAM DESCRIPTION: CHEST PA/LAT COMPLETED DATE/TIME: 05/15/2017 4:55 pm REASON FOR STUDY: pnuemothorax COMPARISON: 05/13/2017 EXAM PARAMETERS: NUMBER OF VIEWS: two views TECHNIQUE: Digital Frontal and Lateral radiographic views of the chest acquired. RADIATION DOSE: NA LIMITATIONS: none FINDINGS: LUNGS AND PLEURA: Markedly improved radiographic appearance of the chest. No residuals le ft sided pneumothorax is demonstrated. Bibasilar atelectasis versus scarring. No focal consolidatio n. Right-sided pleural effusion is present. MEDIASTINUM AND HILAR STRUCTURES: Interval reduction of previously demonstrated mediastinal shift. N o masses. HEART AND VASCULAR STRUCTURES: Heart normal size. No evidence for failure. BONES: No acute findings. HARDWARE: Left alexis thorax chest tube with the tip positioned in the region of the left apex. OTHER: No other significant finding. IMPRESSION: 1. Left hemithorax chest tube without evidence of complication. 2. Interval radiographic resolution of a previously demonstrated left-sided pneumothorax with medias tinal shift. TECHNICAL DOCUMENTATION: JOB ID: [id number] [employer]- All Rights Reserved
[2017-05-16] MEDS: KETOROLAC TROMETHAMINE INJ/PF 30 MG/1 ML SDV IV SCH ×2 (02:42→10:41)
[2017-05-16] MEDS ORDERED: LANSOPRAZOLE 30 MG TAB.RAP.DR PO PRN (03:51)
[2017-05-16] MEDS: HYDROMORPHONE HCL INJ/PF 2 MG/ML AMPULE IV PRN ×2 (06:40→12:48)
[2017-05-16] MEDS: NORMAL SALINE 1000 ML 1,000 ML IV PRN (06:40)
[2017-05-16] MEDS: ONDANSETRON HCL INJ/PF 4 MG/2 ML SDV IV PRN (06:40)
[2017-05-16] MEDS: NICOTINE 21 MG/24 HR PATCH.TD24 TD SCH (09:00)
[2017-05-16] MEDS: OXYCODONE-ACETAMINOPHEN 5-325 MG TABLET PO PRN ×2 (09:01→16:16)
[2017-05-16] MEDS: DOCUSATE SODIUM 100 MG CAPSULE PO SCH (09:01)
--- NOTE | 2017-05-16 15:28 | DISCHARGE SUMMARY E ---
Discharge Summary NAME: EDYTA BOX : 1975 AGE: 41Y ADMITTED: 05/13/2017 DISCHARGED: 05/16/2017 ADMITTING DIAGNOSIS: Left side rib fracture with pneumothorax, traumatic, with fall. DISCHARGE DIAGNOSIS: Left side rib fracture with pneumothorax, traumatic, with fall. HOSPITAL COURSE: The patient was admitted for pain management, also she had a pneumothorax, for which she had a chest tube placement. Chest tube basically had to expand the lung, but we had some pleural fluid still draining until this morning, so today, the patient was feeling much better, afebrile, lung expanded completely, drain was minimal. We removed the chest tube. She is being discharged home with the pain medication, [place], for the pain, stool softener, and I strongly advised her to stop smoking completely, gave her a nicotine patch. Follow up in 1 week in surgery office. DICTATING PHYSICIAN: NILAM VELARDE M.D. [id number] PHY#: [id number] ID: [id number] JOB#: [id number] ACCT: [id number] cc:Ryann YU M.D. > MTDD
--- NOTE | 2017-05-16 15:43 | RADIOLOGY REPORT (SQ) ---
EXAM DESCRIPTION: CHEST SINGLE VIEW COMPLETED DATE/TIME: 05/16/2017 3:26 pm REASON FOR STUDY: removed chest tube COMPARISON: Chest films 05/13/2017, 05/14/2017, 05/15/2017 EXAM PARAMETERS: NUMBER OF VIEWS: One view. TECHNIQUE: Single frontal radiographic view of the chest acquired. RADIATION DOSE: NA LIMITATIONS: None. FINDINGS: LUNGS AND PLEURA: The left chest tube has been removed. Trace left apical pneumothorax. Persistent basilar atelectasis in the left medial lung base and lateral right lung base. No pleural effusions. No right pneumothorax. MEDIASTINUM AND HILAR STRUCTURES: No masses. Contour normal. HEART AND VASCULAR STRUCTURES: Heart normal in size. Normal vasculature. BONES: Left posterior 4th rib fracture HARDWARE: None in the chest. OTHER: No other significant finding. IMPRESSION: Post removal of a left chest tube. Trace left apical pneumothorax. Bibasilar atelectasis. TECHNICAL DOCUMENTATION: JOB ID: [id number]
[2017-05-16 16:10] VITALS: BP 90/47
== END 2017-05-16 16:30 | disposition home or self-care (01) | DRG 201 ==
LOC: ER 10:58 → EH 14:41 → 4N 16:15
PROVIDERS: ATTEND Surgery
PROC: 0W9B30Z Drainage of Left Pleural Cavity with Drainage Device, Percutaneous Approach (ICD-10-PCS; principal; 2017-05-13)
DX: S27.0XXA Traumatic pneumothorax, initial encounter (principal); W17.89XA Other fall from one level to another, initial encounter; W22.8XXA Striking against or struck by other objects, initial encounter; F17.210 Nicotine dependence, cigarettes, uncomplicated; K21.9 Gastro-esophageal reflux disease without esophagitis; Y92.008 Other place in unspecified non-institutional (private) residence as the place of occurrence of the external cause; Z98.51 Tubal ligation status
CPT/HCPCS: 36415; 71010; 71020; 80053; 85025; 94799; 99285; J1170; J1885; J2405; J3010; J3490; J7030; L3908

== ENCOUNTER 2017-10-29 14:45 | Emergency (ER) | payer SELFPAY ==
--- NOTE | 2017-10-29 15:17 | RADIOLOGY REPORT (SQ) ---
EXAM DESCRIPTION: SHOULDER LEFT 2 OR MORE VIEWS COMPLETED DATE/TIME: 10/29/2017 3:07 pm REASON FOR STUDY: positive deformity COMPARISON: Earlier the same day. NUMBER OF VIEWS: Two views. TECHNIQUE: Frontal and lateral images acquired of the left shoulder. LIMITATIONS: None. FINDINGS: Anterior glenohumeral dislocation. IMPRESSION: Anterior glenohumeral dislocation. TECHNICAL DOCUMENTATION: JOB ID: [id number] [employer]- All Rights Reserved Reading location - IP/workstation name: [email or web address]
[2017-10-29] MEDS ORDERED: PROPOFOL INJ 200 MG/20 ML VIAL IV ONE (15:26)
--- NOTE | 2017-10-29 16:27 | ER Document Report ---
ED Extremity Problem, Upper - General Chief Complaint: Shoulder Injury Stated Complaint: SHOULDER INJURY Time Seen by Provider: 10/29/17 15:16 Notes: Patient has dislocated her left shoulder raising her arm above her head this afternoon. She has had this happen to her many times before, "perhaps 100s of times" on the left shoulder and a few times on the right shoulder. Denies any other injuries or complaints. Patient is tearful and appears to have an anterior location of the humeral head and the glenoid fossa. Has normal movement of her fingers in the left hand. No neural loss. TRAVEL OUTSIDE OF THE [place] IN LAST 30 DAYS: No - Related Data Allergies/Adverse Reactions: No Known Allergies Allergy (Verified 10/29/17 14:46) Past Medical History - Social History Smoking Status: Unknown if Ever Smoked Family History: Reviewed & Not Pertinent Patient has suicidal ideation: No Patient has homicidal ideation: No GI Medical History: Reports: Hx Gastroesophageal Reflux Disease Traumatic Medical History: Reports: Hx Spleen Laceration/Rupture Past Surgical History: Reports: Hx Abdominal Surgery - spleenectomy, Hx Section, Hx Orthopedic Surgery - left foot, right hand, Hx Tubal Ligation - Immunizations Hx Diphtheria, Pertussis, Tetanus Vaccination: Yes Review of Systems - Review of Systems Notes: REVIEW OF SYSTEMS: Difficult to obtain because patient is hollering and screaming loudly about her shoulder pain and not answering most of my questions. CONSTITUTIONAL : Denies fever. EENT: Denies eye, ear, nose or mouth or throat pain or other symptoms. CARDIOVASCULAR: Denies chest pain. RESPIRATORY: Denies cough, chest congestion, or shortness of breath. GASTROINTESTINAL: Denies abdominal pain or nausea, vomiting, or diarrhea. GENITOURINARY: Denies difficulty or painful urinating, urinary frequency, blood in urine. MUSCULOSKELETAL: Denies back or neck pain. See HPI. SKIN: Denies rash or skin lesions. NEUROLOGICAL: Denies LOC or altered mental status. Denies headache. Denies sensory loss or motor deficits. ALL OTHER SYSTEMS REVIEWED AND NEGATIVE. Physical Exam - Vital signs Vitals: Temp Pulse Resp BP Pulse Ox 98.3 F 84 18 115/70 95 10/29/17 14:54 10/29/17 14:54 10/29/17 14:54 10/29/17 14:54 10/29/17 14:54 Interpretation: Normal - Notes Notes: PHYSICAL EXAMINATION: GENERAL: Patient is holding her left shoulder very still with her right hand. Patient is very thin individual limits apparent from looking at her shoulder that she has an anterior dislocation of the humeral head. Very tender to touch or move at all. HEAD: Atraumatic, normocephalic. EYES: Pupils equal round and reactive to light, extraocular movements intact. ENT: oropharynx clear without exudates. Moist mucous membranes. NECK: Normal range of motion, supple. LUNGS: Breath sounds clear and equal bilaterally. HEART: Regular rate and rhythm without murmurs. ABDOMEN: Soft, nontender. No guarding or rebound. No masses. BACK: No tenderness throughout entire back. EXTREMITIES: Apparent anterior dislocation of the left humerus. Good neuro function in the left hand. Good circulation in the nailbeds of the left fingers. NEUROLOGICAL: Yelling loudly. Normal gait while holding her arm still with the opposite arm.. Normal sensory, motor, and reflex exams. Awake, alert, and oriented x3. PSYCH: Normal mood, normal affect. SKIN: Warm, dry, no rashes. Course - Vital Signs Vital signs: Temp Pulse Resp BP Pulse Ox 98.3 F 84 18 98/70 L 94 10/29/17 14:54 10/29/17 14:54 10/29/17 16:21 10/29/17 16:21 10/29/17 16:21 Procedures - Joint Reduction/Fracture Care Left Shoulder Consent obtained: Yes Conscious sedation: Yes Pre-procedure NV exam: Yes Manipulation comment: External rotation of humerus and then extension at the shoulder joint Post-procedure NV exam: Yes Post-reduction x-ray: Joint reduced Reduction attempts: 1 Complications: No Notes: 10/29/17 19:03 Easy reduction with external rotation of the humerus and extension of the left shoulder joint. Neurovascular intact in the left upper extremity after the reduction procedure. Discharge - Discharge Clinical Impression: Anterior dislocation of left shoulder Condition: Stable Disposition: HOME, SELF-CARE Additional Instructions: Shoulder Dislocation You've had a shoulder dislocation. Even after the shoulder is put back in place, careful care is needed to prevent further problems. As the shoulder dislocated, injury to the joint itself occurred. This must be allowed to heal. The usual treatment is a shoulder immobilizing sling. If this is your first dislocation, it must be left in place until the doctor allows you to remove it. This is important. Ice pack the shoulder frequently. One of the most important aspects of care for a shoulder dislocation is mobility exercises and strengthening exercises. You'll start these when it's safe to start moving the shoulder joint. Be sure to keep your follow-up appointments. If you develop numbness in the arm or hand, weakness of the hand muscles, arm swelling, or arm discoloration, call the doctor or return immediately. Sling as Treatment A sling has been applied to protect the injury. This is adequate immobilization for this type of injury -- no cast or brace is required. Keep the sling on at all times until instructed to remove it by the doctor. Even though no cast or splint is needed, you must use the sling. If you use the arm too soon, it may not heal properly! If necessary, the sling can be adjusted for comfort. Return if you are encountering problems with the sling. We recommend you follow-up with an orthopedic surgeon for evaluation for possible surgery on her shoulder to keep it from coming out of place. Ibuprofen Ibuprofen is an excellent, safe drug for pain control. In addition, it has potent antiinflammatory effects which are beneficial, especially in the treatment of injuries, arthritis, or tendonitis. It's best to take ibuprofen with food. Persons with ulcer disease or allergy to aspirin should notify their physician of this before taking ibuprofen. Take the medication exactly as prescribed. Don't take additional doses unless instructed to do so by your doctor. If you develop wheezing, shortness of breath, hives, faintness, stomach pain, vomiting, or dark black stools, return for re-evaluation at once. USE OF ACETAMINOPHEN (Tylenol): Acetaminophen may be taken for pain relief or fever control. It's much safer than aspirin, offering a wider range of "safe" dosages. It is safe during . Some brand names are Tylenol, Panadol, Datril, Anacin 3, Tempra, and Liquiprin. Acetaminophen can be repeated every four hours. The following are maximum recommended dosages: WEIGHT Dose Drops Elixir Chewable( 80mg) (LBS.) drprs=droppers tsp=teaspoon 24-30 240 mg 3 >89 pounds or adults 650 mg to 900 mg Acetaminophen can be repeated every four hours. Maximum dose not to exceed 4000 mg a day. These maximum recommended dosages are slightly higher than the dosages written on the product container, but these dosages are very safe and below the toxic dosage for acetaminophen. FOLLOW-UP CARE: If you have been referred to a physician for follow-up care, call the physician s office for an appointment as you were instructed or within the next two days. If you experience worsening or a significant change in your symptoms, notify the physician immediately or return to the Emergency Department at any time for re-evaluation.
--- NOTE | 2017-10-29 16:30 | RADIOLOGY REPORT (SQ) ---
EXAM DESCRIPTION: SHOULDER LEFT 1 VIEW COMPLETED DATE/TIME: 10/29/2017 4:19 pm REASON FOR STUDY: Post reduction x-ray. COMPARISON: Earlier same day. NUMBER OF VIEWS: One view. TECHNIQUE: Frontal images acquired of the left shoulder. LIMITATIONS: None. FINDINGS: Dislocation has been reduced. IMPRESSION: Successful closed reduction. TECHNICAL DOCUMENTATION: JOB ID: [id number] [employer]- All Rights Reserved Reading location - IP/workstation name: [email or web address]
[2017-10-29 16:40] VITALS: BP 98/70
== END 2017-10-29 16:31 | disposition home or self-care (01) ==
LOC: ER 14:45
PROC: 0RSKXZZ Reposition Left Shoulder Joint, External Approach (ICD-10-PCS; principal; 2017-10-29)
DX: M24.412 Recurrent dislocation, left shoulder (principal)
CPT/HCPCS: 99283; 99153; 99152; 73020; 73030; 23650; L3650; J2704

== ENCOUNTER 2018-09-29 12:56 | Emergency (ER) | payer SELFPAY ==
[2018-09-29] MEDS ORDERED: ACETAMINOPHEN 325 MG TABLET PO ONE (13:26)
--- NOTE | 2018-09-29 13:28 | ER Document Report ---
HPI - HPI Time Seen by Provider: 09/29/18 13:21 Pain Level: 2 Notes: Patient is a 42-year-old female with chronic ankle issues on the right side currently being seen by [facility] who presents to the emergency department complaining of acute on chronic right ankle pain and neck pain status post fall prior to arrival. Patient states that she lost her footing and reinjured her right ankle and believes that she may have injured her neck in the process that she has pain along the spine of her neck. She did not hit her head or lose consciousness. Denies drug allergies. No other concerns or complaints. Denies IV drug abuse. No history of spinal abscess. Denies any headache, fever, head injury, changes in vision/speech/mentation/hearing, URI, sore throat, chest pain, palpitations, syncope, cough, shortness of breath, wheeze, dyspnea, abdominal pain, nausea/vomiting/diarrhea, urinary retention, dysuria, hematuria, loss of control of bowel or bladder, numbness/tingling, saddle anesthesia, muscle paralysis, or rash. - ROS Systems Reviewed and Negative: Yes All other systems reviewed and negative - REPRODUCTIVE Reproductive: DENIES: : Past Medical History - Social History Smoking Status: Current Every Day Smoker Family History: Reviewed & Not Pertinent Renal/ Medical History: Denies: Hx Peritoneal Dialysis GI Medical History: Reports: Hx Gastroesophageal Reflux Disease Traumatic Medical History: Reports: Hx Spleen Laceration/Rupture Past Surgical History: Reports: Hx Abdominal Surgery - spleenectomy, Hx Section, Hx Orthopedic Surgery - left foot, right hand, Hx Tubal Ligation - Immunizations Hx Diphtheria, Pertussis, Tetanus Vaccination: Yes Vertical Provider Document - CONSTITUTIONAL Agree With Documented VS: Yes Notes: PHYSICAL EXAMINATION: GENERAL: Well-appearing, well-nourished and in no acute distress. Neck: FROM. Strength 5+/5. + tenderness to the midline and left c-paraspinal mm. LUNGS: Breath sounds clear to auscultation bilaterally and equal. No wheezes rales or rhonchi. HEART: Regular rate and rhythm without murmurs, rubs, gallops. Musculoskeletal: Rt foot/ankle: LROM to passive/active dorsiflexion. Strength 5+/5. N/V intact distal. + tenderness to the medial malleolus. No bony te nderness of the foot. Achilles intact. Extremities: No cyanosis, clubbing, or edema b/l. Peripheral pulses 2+. Capillary refill less than 3 seconds. NEUROLOGICAL: Normal speech, limping gait with use of quad cane. Normal sensory, motor exams PSYCH: Normal mood, normal affect. SKIN: Warm, Dry, normal turgor, no rashes or lesions noted. - INFECTION CONTROL TRAVEL OUTSIDE OF THE [place] IN LAST 30 DAYS: No Course - Re-evaluation Re-evalutation: 09/29/18 14:51 Patient is an afebrile, well-hydrated, 42-year-old female who presents to the ED with rt ankle pain and neck pain which I suspect to be a sprain versus strain. Vitals are acceptable without any significant tachycardia, tachypnea, or hypoxia. PE is otherwise unremarkable for any neurovascular compromise, obvious tendon/ligament rupture, obvious fracture/dislocation, septic joint. X-ray/CT scan unremarkable for any acute pathology. Ankle stirrup provided today. Patient is nontoxic-appearing. Patient is able to ambulate and weight-bear although she is limping. No other labs or imaging warranted at this time based on H&P. Conservative measures otherwise for symptoms. Recheck with your PCM in 3-5 days. Consider consult orthopedics. Return to the ED with any worsening/concerning symptoms otherwise as reviewed in discharge. Patient is in agreement. - Vital Signs Vital signs: Temp Pulse Resp BP Pulse Ox 98.0 F 88 18 110/78 100 09/29/18 13:07 09/29/18 13:07 09/29/18 13:07 09/29/18 13:07 09/29/18 13:07 Discharge - Discharge Clinical Impression: Neck pain on left side Right ankle pain Qualifiers: Chronicity: acute Qualified Code(s): M25.571 - Pain in right ankle and joints of right foot Condition: Stable Disposition: HOME, SELF-CARE Additional Instructions: Rest, Ice, Compression, Elevation Use splint as directed Tylenol/ibuprofen as needed Light stretches daily Strength exercises as able Moist heat and massage may help F/u with your PCP in 3-5 days for a recheck Consider consult(s) with Orthopedics/physical therapy for ongoing/worsening symptoms Return to the ED with any worsening symptoms and/or development of fever, headache, chest pain, palpitations, syncope, shortness of breath, trouble breathing, abdominal pain, n/v/d, muscle weakness/paralysis, numbness/tingling, swelling, redness, or other worsening symptoms that are concerning to you. Forms: Smoking Cessation Education Referrals: [facility] [Provider Group] - Follow up as needed
--- NOTE | 2018-09-29 14:20 | RADIOLOGY REPORT (SQ) ---
EXAM DESCRIPTION: CT CERVICAL SPINE WITHOUT COMPLETED DATE/TIME: 09/29/2018 2:07 pm REASON FOR STUDY: neck pain s/p fall COMPARISON: None. TECHNIQUE: Axial images acquired through the cervical spine without intravenous contrast. Images re viewed with lung, soft tissue and bone windows. Reconstructed coronal and sagittal MPR images review ed. Images stored on PACS. All CT scanners at this facility use dose modulation, iterative reconstruction, and/or weight based d osing when appropriate to reduce radiation dose to as low as reasonably achievable (ALARA). [facility]: Dose Right [facility]: CareDose [facility]: Dose Right [facility]: Teradose 4D [facility]: Shopetti RADIATION DOSE: CT Rad equipment meets quality standard of care and radiation dose reduction techniq ues were employed. CTDIvol: 11.2 mGy. DLP: 264 mGy-cm. mGy. LIMITATIONS: None. FINDINGS: ALIGNMENT: Anatomic. MINERALIZATION: Normal. VERTEBRAL BODIES: No fractures or dislocation. DISCS: Craniocervical junction, C1-2 are unremarkable. At C2-3, moderate left foraminal narrowing is present from left-sided facet hypertrophy. No central or right foraminal narrowing. C3-4 is unremarkable. At C4-5, mild asymmetric facet hypertrophy causes mild right foraminal narrowing. No central stenosi s or left foraminal narrowing. At C5-6, C6-7, and C7-T1 no significant central or foraminal narrowing is present. FACETS, LATERAL MASSES, POSTERIOR ELEMENTS: No fractures. No dislocation. No acute findings. HARDWARE: None in the spine. VISUALIZED RIBS: No fractures. LUNG APICES AND SOFT TISSUES: No significant or acute findings. OTHER: Along the upper thoracic spine, there is bony spurring on the left at the T3 costovertebral darby int and T3-4 facet joint with mild left C3-4 foraminal narrowing. IMPRESSION: NO ACUTE FINDINGS IN THE CERVICAL SPINE. TECHNICAL DOCUMENTATION: JOB ID: [id number] Quality ID # [id number]: Final reports with documentation of one or more dose reduction techniques (e.g., Au tomated exposure control, adjustment of the mA and/or kV according to patient size, use of iterative reconstruction technique) 2010 [employer]- All Rights Reserved Reading location - IP/workstation name: [email or web address]
--- NOTE | 2018-09-29 14:45 | RADIOLOGY REPORT (SQ) ---
EXAM DESCRIPTION: ANKLE RIGHT COMPLETE COMPLETED DATE/TIME: 09/29/2018 2:27 pm REASON FOR STUDY: acute on chronic pain s/p injury COMPARISON: None. NUMBER OF VIEWS: Three views. TECHNIQUE: AP, lateral, and oblique radiographic images acquired of the right ankle. LIMITATIONS: None. FINDINGS: MINERALIZATION: Normal. BONES: Old fracture deformity of the calcaneus. No acute fracture of the ankle. JOINTS: No effusions. SOFT TISSUES: No soft tissue swelling. No foreign body. OTHER: No other significant finding. IMPRESSION: NEGATIVE STUDY OF THE RIGHT ANKLE. NO RADIOGRAPHIC EVIDENCE OF ACUTE INJURY. TECHNICAL DOCUMENTATION: JOB ID: [id number] [employer]- All Rights Reserved Reading location - IP/workstation name: [email or web address]
[2018-09-29 15:03] VITALS: BP 142/82
== END 2018-09-29 15:02 | disposition home or self-care (01) ==
LOC: ER 12:56
DX: M54.2 Cervicalgia (principal); M25.571 Pain in right ankle and joints of right foot; F17.200 Nicotine dependence, unspecified, uncomplicated; Z98.51 Tubal ligation status
CPT/HCPCS: 99284; 73610; 72125; L1902

== ENCOUNTER → 2018-12-29 | Emergency (ER) | payer SELFPAY ==
[2018-12-29 12:20] VITALS: BP 127/89
== END | disposition left against medical advice (07) ==
LOC: ER 11:58
DX: Z53.21 Procedure and treatment not carried out due to patient leaving prior to being seen by health care provider (principal)

== ENCOUNTER 2020-08-03 07:53 | Emergency (ER) | payer SELFPAY ==
--- NOTE | 2020-08-03 10:51 | RADIOLOGY REPORT (SQ) ---
EXAM DESCRIPTION: SHOULDER LEFT 2 OR MORE VIEWS IMAGES COMPLETED DATE/TIME: 08/03/2020 10:39 am REASON FOR STUDY: dislocation COMPARISON: 10/29/2017 FINDINGS: One view AP portable upright image. Limited single view shows dislocation, presumably anterior. There is midclavicular fracture which is new compared to 2018 but otherwise probably chronic with lac k of [place]. TECHNICAL DOCUMENTATION: JOB ID: [id number] Reading location - IP/workstation name: [email or web address]
[2020-08-03] MEDS ORDERED: FENTANYL CITRATE INJ/PF 100 MCG/2 ML AMPUL IV ONE ×2 (11:03→12:44)
[2020-08-03] MEDS ORDERED: ETOMIDATE INJ/PF 20 MG/10 ML SDV IV ONE (11:04)
[2020-08-03] MEDS ORDERED: NORMAL SALINE 500 ML IV ONE (11:11)
[2020-08-03] MEDS ORDERED: FENTANYL CITRATE INJ/PF 100 MCG/2 ML AMPUL ONE (11:56)
[2020-08-03] MEDS ORDERED: KETAMINE HCL INJ 500 MG/10 ML VIAL ONE (12:00)
[2020-08-03] MEDS ORDERED: MIDAZOLAM 2 MG/2 ML INJ ONE ×2 (12:08→12:09)
[2020-08-03] MEDS ORDERED: KETAMINE HCL INJ 500 MG/10 ML VIAL IV ONE ×2 (12:44→12:47)
[2020-08-03] MEDS ORDERED: MIDAZOLAM 2 MG/2 ML INJ IV ONE ×2 (12:47→13:12)
--- NOTE | 2020-08-03 12:48 | RADIOLOGY REPORT (SQ) ---
EXAM DESCRIPTION: SHOULDER LEFT 2 OR MORE VIEWS IMAGES COMPLETED DATE/TIME: 08/03/2020 12:29 pm REASON FOR STUDY: post procedural reduction COMPARISON: Earlier the same day. NUMBER OF VIEWS: Three views. TECHNIQUE: Internal rotation, external rotation, and Y view images acquired of the left shoulder. LIMITATIONS: None. FINDINGS: Humeral head is overlying the glenoid. IMPRESSION: Successful closed reduction. TECHNICAL DOCUMENTATION: JOB ID: [id number] 2010 [employer]- All Rights Reserved Reading location - IP/workstation name: [email or web address]
--- NOTE | 2020-08-03 13:25 | ER Document Report ---
Entered by KENTRELL GONZALEZ SCRIBE 08/03/20 1027 Acting as scribe for:YANDEL GIL MD ED General - General Chief Complaint: Shoulder Injury Stated Complaint: SHOULDER PAIN Time Seen by Provider: 08/03/20 10:09 Primary Care Provider: MICHAEL,PAULA [Primary Care Provider] - Follow up as needed Information source: Patient, Emergency Med Personnel Notes: This 44 year old female patient presents to the emergency department today with complaints of left shoulder pain. Patient states she thinks her left shoulder is dislocated and has history of dislocation to her bilateral shoulders. Patient states she was opening her door to go outside 4 hours ferry [employer] and her shoulder pain began. Per EMS, patient was administered 150 fentanyl en route. TRAVEL OUTSIDE OF THE [place] IN LAST 30 DAYS: No - Related Data Allergies/Adverse Reactions: No Known Allergies Allergy (Verified 08/03/20 07:57) Past Medical History - General Information source: Patient, [facility] Records - Social History Smoking Status: Current Every Day Smoker Cigarette use (# per day): Yes Chew tobacco use (# tins/day): No Frequency of alcohol use: None Drug Abuse: None Family History: Reviewed & Not Pertinent Patient has homicidal ideation: No GI Medical History: Reports: Hx Gastroesophageal Reflux Disease Traumatic Medical History: Reports: Hx Spleen Laceration/Rupture Past Surgical History: Reports: Hx Abdominal Surgery - spleenectomy, Hx Section, Hx Orthopedic Surgery - left foot, right hand, Hx Tubal Ligation - Immunizations Hx Diphtheria, Pertussis, Tetanus Vaccination: Yes Review of Systems - Review of Systems Constitutional: No symptoms reported EENT: No symptoms reported Cardiovascular: No symptoms reported Respiratory: No symptoms reported Gastrointestinal: No symptoms reported Genitourinary: No symptoms reported Female Genitourinary: No symptoms reported Musculoskeletal: See HPI, Other - Left shoulder pain Skin: No symptoms reported Hematologic/Lymphatic: No symptoms reported Neurological/Psychological: No symptoms reported -: Yes All other systems reviewed and negative Physical Exam - Vital signs Vitals: Temp 97.5 F 08/03/20 07:59 - General Notes: Alert. Afebrile. Appears in distress. - HEENT Head: Normocephalic, Atraumatic Eyes: Normal Pupils: PERRL - Respiratory Respiratory status: No respiratory distress Breath sounds: Normal - Cardiovascular Rhythm: Regular Heart sounds: Normal auscultation, S1 appreciated, S2 appreciated Murmur: No - Abdominal Inspection: Normal, Other - soft Distension: No distension Tenderness: Nontender - Extremities General lower extremity: Normal inspection. No: Edema Notes: Anterior dislocation of the left shoulder. Pain with ROM. Distal sensation intact and normal capillary refill distally. - Neurological Neuro grossly intact: Yes Cognition: Normal Orientation: AAOx4 Shirin Coma Scale Eye Opening: Spontaneous Shirin Coma Scale Verbal: Oriented Shirin Coma Scale Motor: Obeys Commands Shirin Coma Scale Total: 15 Speech: Normal Sensory: Normal - Psychological Associated symptoms: Normal affect, Normal mood - Skin Skin Temperature: Warm Skin Moisture: Dry Skin Color: Normal Course - Re-evaluation Re-evalutation: 08/03/20 13:14 Patient recovering and resting comfortably from procedural sedation for closed reduction of a left anterior dislocated shoulder. - Vital Signs Vital signs: Temp Pulse Resp BP Pulse Ox 97.5 F 77 14 130/85 H 100 08/03/20 08:05 08/03/20 08:05 08/03/20 13:10 08/03/20 13:10 08/03/20 13:10 08/03/20 13:14 Vital signs stable - Laboratory Results Critical Laboratory Results Reviewed: No Critical Results - Radiology Results Radiology Results Interpreted: 08/03/20 13:14 Shoulder X-Ray 08/03/20 12:26 IMPRESSION: Successful closed reduction. Initial left shoulder x-ray 1 view shows anterior dislocation of the left shoulder and an old mid clavicular fracture on the left. Postreduction left shoulder x-ray with 2 views including Y view shows successful closed reduction. Critical Radiology Results Reviewed: Yes Attending or Supervising Physician who Reviewed Radiology: YANDEL GIL Procedures - Conscious Sedation Conscious sedation Time started: 11:50 Time completed: 12:19 Consent obtained: Yes Indication: Left shoulder dislocation Prior complications: Procedural sedation Emergent conditions applies.: E. - ASA Classification Airway Evaluation: Normal anatomy Mallampati Classification: Class 2 Used during procedure: IV access obtained, Pulse ox on pt., refrigerator crater on pt. Medications administered: Versed, Fentanyl, Etomidate, Ketamine I personally performed/intraservice time: Sedation, Procedure, 30 min or less - Immobilization Left Shoulder Time completed: 12:20 Immobilizer type: Shoulder immobilizer Performed by: Provider assisted, PCT Post-Proc Neuro Vasc Exam: Normal, Unchanged from pre-exam Alignment checked and good: Yes Discharge - Discharge Clinical Impression: Recurrent dislocation, left shoulder Condition: Stable Disposition: HOME, SELF-CARE Instructions: Shoulder Dislocation ([facility]), Sling as Treatment ([facility]) Prescriptions: Ibuprofen [Ibu] 600 mg PO TID PRN #21 tablet PRN Reason: Pain Scale Of 3 Hydrocodone/Acetaminophen [[place] 10-325 mg Tablet] 1 tab PO TID PRN #10 tablet PRN Reason: prn severe pain Referrals: [facility],NO [Primary Care Provider] - Follow up as needed SHELIA LLANES JR, DO [ACTIVE PROVISIONAL STAFF] - Follow up in 1 week I personally performed the services described in the documentation, reviewed and edited the documentation which was dictated to the scribe in my presence, and it accurately records my words and actions.
[2020-08-03] MEDS ORDERED: DEXTROSE 5%-1/2 NORMAL SALINE 1,000 ML IV ONE (14:48)
[2020-08-03 15:24] VITALS: BP 119/81
== END 2020-08-03 15:46 | disposition home or self-care (01) ==
LOC: ER 07:53
DX: M24.412 Recurrent dislocation, left shoulder (principal); F17.210 Nicotine dependence, cigarettes, uncomplicated
CPT/HCPCS: 99285; 96361; 99152; 96374; 73030; 23650; J2250; J3010; J3490 ×2; J7040